=== PATIENT | male | born 1945 | race Caucasian/White ===

== ENCOUNTER → 2017-08-12 | Day surgery (SDC) | payer MEDICARE, BC, OTHER ==
[~2017-08-12] MED LIST: BUPIVACAINE/EPINEPHRINE 0.25% PF 30 ML VIAL ONE; BUPIVACAINE/EPINEPHRINE 0.5% PF 30 ML VIAL ONE; MIDAZOLAM HCL 2 MG/2 ML VIAL ONE; NEOMYCIN/POLYMYXIN/BACITRACIN OINT 15 GM TUBE ONE; ONDANSETRON HCL 4 MG/2 ML VIAL IV PUSH ONE; PROPOFOL 200 MG/20 ML AMP IV ONE; ceFAZolin INJ 1,000 MG VIAL ONE
--- NOTE | 2017-08-12 10:44 | TN ---
cc: CELSO VERDE M.D. DATE OF SURGERY: 08/12/2017 PREOPERATIVE DIAGNOSIS 1. 3 cm soft tissue mass right upper back. 2. Chronic draining wound left flank with associated soft tissue mass 3 cm. POSTOPERATIVE DIAGNOSIS 1. 3 cm soft tissue mass right upper back. 2. Chronic draining wound left flank with associated soft tissue mass 3 cm. 3. Probable sebaceous cyst. PROCEDURE PERFORMED 1. Wide local excision 3 cm soft tissue mass upper right back. 2. Wide local excision chronic draining wound and 3 cm soft tissue mass left flank. SURGEON Celso Verde MD ANESTHESIA General LMA lateral. COMPLICATIONS None. INDICATION FOR PROCEDURE Mr. Clayton is a pleasant 71-year-old gentleman who had a soft tissue mass on his upper back that was enlarging and causing him discomfort. He also had a chronic draining wound in his left flank associated with the mass. Based on physical exam these most likely represent sebaceous cyst. Because they were multiple and they were large, I recommended this be done in the operating room. Risks and benefits of wide local excision was discussed with him and he was agreeable. DETAILS OF PROCEDURE The patient was identified, brought to the operating room and placed supine on the operating table. After adequate general anesthesia was achieved with LMA he was then turned in the right lateral decubitus position with appropriate padding for hips, knees, shoulders and ankles. Attention was first directed to the right back lesion which was clean. 0.25% Marcaine was injected around the mass. An elliptical skin incision was used to excise the overlying skin. Subcutaneous fat was dissected with sharp dissection circumferentially with care not to violate the capsule of the mass. Mass was excised in toto and sent to pathology for analysis. Wound was irrigated with normal saline solution, injected with additional local anesthetic and then closed in two layers using a 3-0 and 4-0 Vicryl. Sterile dressings were applied. Attention was now directed to the left flank lesion. The left flank lesion was noted have some active draining pus and therefore this was considered a contaminated case. 0.25% Marcaine was injected all around the wound. A generous elliptical incision was used to excise the entire wound and draining sinus. Subcutaneous tissue was dissected with sharp dissection. Care was taken to avoid getting into the mass or violating its capsule. The mass was excised in toto and sent to pathology for analysis. Wound was irrigated with normal saline solution several times. Wound was injected with additional local anesthetic. Wound was then closed in two layers using a 3-0 Vicryl for the deep tissue and a 4-0 Nylon for the skin. Sterile dressings were applied with antibiotic ointment. The patient was awakened, returned to supine position and brought to recovery in stable condition. Celso MD FAUSTO Verde/ALYSSA /10:18 AM /10:23 AM
== END | disposition home or self-care (01) ==
LOC: ESDC 08:18
PROVIDERS: ATTEND Surgery Trauma Surgery
DX: L72.0 Epidermal cyst (principal)
CPT/HCPCS: 00300; 11403; 88304; J0690; J2250; J2405; J3010; 88305